=== PATIENT | female | born 1970 | race Caucasian/White ===

== ENCOUNTER 2023-12-12 14:26 | Emergency (ER) | payer BC ==
[~2023-12-12] VITALS: Ht 172.7 cm; Wt 69.9 kg
[2023-12-12] MEDS ORDERED: STATINS (14:49)
[2023-12-12] MEDS ORDERED: AMLO-212 PO (14:49)
[2023-12-12] MEDS ORDERED: ASPI81TA31 PO (14:49)
[2023-12-12 15:03] LABS: BASOPHILS # (AUTO) 0.1 K/UL (0.0-0.2); BASOPHILS % (AUTO) 0.9 % (0.0-2.0); EOSINOPHILS # (AUTO) 0.1 K/uL (0.0-0.7); EOSINOPHILS % (AUTO) 1.5 % (0.0-7.0); HEMATOCRIT 36.2 % (31.2-41.9); HEMOGLOBIN 12.1 g/dL (10.9-14.3); MEAN CORPUSCULAR HEMOGLOBIN 28.6 uug (24.7-32.8); MEAN CORPUSCULAR HGB CONC 34 g/dL (32.3-35.6); MEAN CORPUSCULAR VOLUME 85.4 fL (75.5-95.3); MONOCYTES # (AUTO) 0.5 K/uL (0.1-1.30); MONOCYTES % (AUTO) 6.9 % (0.0-11.0); NEUTROPHILS % (AUTO) 64.7 % (38.5-71.5); PLATELET COUNT (AUTO) 281 K/uL (179-408); RED BLOOD CELL COUNT(AUTO) 4.24 MIL/uL (3.63-4.92); RED CELL DISTRIBUTION WIDTH 12.5 % (12.3-17.7); WHITE BLOOD COUNT (AUTO) 7.7 K/uL (3.8-11.8)
[2023-12-12 15:05] LABS: DIFFERENTIAL COMMENT 1
[2023-12-12 15:08] LABS: CALCIUM 8.6 mg/dL (8.5-10.1); CARBON DIOXIDE 25 mmol/L (21-32); CHLORIDE 98 mmol/L (98-107); CREATININE 0.8 mg/dL (0.6-1.3); GLUCOSE 139 mg/dL (74-106); POTASSIUM 3.2 mmol/L (3.5-5.1); SODIUM SERUM 133 mmol/L (136-145); UREA NITROGEN, BLOOD 10 mg/dL (7-18)
[2023-12-12 15:16] LABS: ALANINE AMINOTRANSFERASE 25 U/L (14-59); ALBUMIN 3.7 g/dL (3.4-5.0); ALKALINE PHOSPHATASE 99 U/L (50-136); ASPARTATE AMINOTRANSFERASE 14 U/L (15-37); BILIRUBIN,DIRECT 0.1 mg/dL (0.0-0.2); BILIRUBIN,TOTAL 0.8 mg/dL (0.2-1.0); TOTAL PROTEIN, SERUM 7.1 g/dL (6.4-8.2)
[2023-12-12] MEDS: IV NORMAL SALINE 1000 ML BAG IV ONE (15:37)
[2023-12-12] MEDS ORDERED: MORPHINE SULFATE 4 MG/1 ML DISP.SYRIN ONE (15:50)
[2023-12-12] MEDS ORDERED: METOCLOPRAMIDE HCL 10 MG/2 ML VIAL ONE (15:50)
[2023-12-12] MEDS: METOCLOPRAMIDE HCL 10 MG/2 ML VIAL IV ONE (16:08)
[2023-12-12] MEDS: MORPHINE SULFATE 4 MG/1 ML DISP.SYRIN IV ONE (16:09)
[2023-12-12 17:28] VITALS: BP 131/97; O2SAT 100
== END 2023-12-12 17:29 | disposition home or self-care (01) ==
LOC: ER 14:28
DX: E86.0 Dehydration (principal); E07.89 Other specified disorders of thyroid; R55 Syncope and collapse; Z79.82 Long term (current) use of aspirin; Z79.899 Other long term (current) drug therapy; Z88.0 Allergy status to penicillin; Z88.5 Allergy status to narcotic agent
CPT/HCPCS: 99285; 96374; 70450; 71045; 96361; 96375; 80076; 80048; 83880; 85025; 85379; 85730; 84484 ×2; 36415; 93005; J2765; J2270; J7040; A4606; A4663